=== PATIENT | female | born 1975 | race Caucasian/White ===

== ENCOUNTER 2021-11-13 13:28 | Outpatient (CLI) | payer OTHER, SELFPAY ==
--- NOTE | 2021-11-13 13:37 | MM_ITS ---
WS: [id number] Exam: [place] [id number] Date/Time of Exam: 11/13/2021 1:40 PM Reason For Exam: SCREENING VIEWS: MLO and CC views both breasts. Comparison made with prior exam of 05/10/2019. Findings: There was no sign of mass, architectural distortion or suspicious calcification in either breast. Sev eral small benign-appearing nodules in both breasts which are stable.Scattered fibroglandular densit ies MM/[place] [id number] Impression: BI-RADS: 2-Benign FOLLOW-UP: 1 Year Follow-up This mammogram was also analyzed by the Computer Aided Detection System R2 Imag e Product Tester [employer].
== END 2021-11-13 13:29 | disposition home or self-care (01) ==
LOC: RADSHAW 13:35
PROVIDERS: PCP Nurse Practitioner Family; Visit Provider Nurse Practitioner Family
DX: Z12.31 Encounter for screening mammogram for malignant neoplasm of breast (principal)
CPT/HCPCS: 77067

== ENCOUNTER 2022-11-02 16:20 | Outpatient (CLI) | payer OTHER, SELFPAY ==
--- NOTE | 2022-11-02 16:40 | XR_ITS ---
WS: [id number] XR elbow RT 2V [id number] REASON FOR EXAM: ELBOW JT PAIN, RIGHT FINDINGS: Joint spaces of the right elbow are intact and well preserved. No fracture or focal bone lesion. No periosteal reaction. No soft tissue abnormality. XR/XR elbow RT 2V [id number] IMPRESSION: No significant abnormality.
== END 2022-11-02 16:21 | disposition home or self-care (01) ==
PROVIDERS: PCP Nurse Practitioner Family; Visit Provider Family Medicine
DX: M25.521 Pain in right elbow (principal)
CPT/HCPCS: 73070

== ENCOUNTER 2024-05-16 13:12 | Outpatient (CLI) | payer OTHER, SELFPAY ==
--- NOTE | 2024-05-16 13:21 | USCV_ITS ---
Claudia Allen Age: 49 Gender: F : 1975 Exam Date: 05/16/2024 13:29 Ordering Phys: Alisha العراقي DO Technologist: CT Exam Location: [facility] [place]_ Indication: murmur BP: 152 / 84 HR: 99 Rhythm: Sinus Technical Quality: Technically difficult study MEASUREMENTS (Male / Female) Normal Values 2D ECHO LVOT Diameter 2.0 cm LV Ejection Fraction MOD 4C 56.2 % LV Ejection Fraction MOD 2C 58.5 % LV Ejection Fraction 2C AL 57.4 % LA Diameter 4.0 cm RA Systolic Volume 4C AL 35.2 ml RA Systolic Volume 4C MOD 32.4 ml LA Sys Volume AL 56.8 cm cubed LA Sys Volume Index AL 23.2 cm cubed/m squared Aorta at Sinotubular Diameter 1.7 cm M-MODE LA Ao Ratio MM 1.9 AV Cusp Separation MM 1.4 cm DOPPLER AV Peak Velocity 164.0 cm/s LVOT Peak Velocity 150.0 cm/s AV Area Cont Eq vti 2.2 cm squared AV Area Cont Eq pk 2.9 cm squared MV Peak Velocity 148.0 cm/s MV Area PHT 4.2 cm squared Mitral E to A Ratio 0.8 TR Peak Velocity 111.0 cm/s TR Peak Gradient 4.9 mmHg TV Peak E Velocity 72.0 cm/s Right Atrial Pressure 3.0 mmHg Pulmonary Artery Systolic Pressu 7.9 mmHg PV Peak Velocity 143.0 cm/s FINDINGS Left Ventricle Normal left ventricular size and systolic function, EF 58%. No gross wall motion abnormalities.Grade I/IV diastolic dysfunction (abnormal relaxation filling pattern), normal to mildly elevated filling pressures. Right Ventricle The right ventricle is normal in size and function. Right Atrium The right atrium is normal in size. Left Atrium The left atrium is normal in size. Mitral Valve Moderate mitral annular calcification. Aortic Valve Thickened aortic valve. Tricuspid Valve No gross abnormalities noted Pulmonic Valve No gross abnormalities noted Pericardium Normal pericardium without effusion. Aorta Normal ascending aorta dimension. IVC The inferior vena cava appears normal. CONCLUSIONS Normal left ventricular size and systolic function, EF 58%. No gross wall motion abnormalities. Some features of grade I/IV diastolic dysfunction (abnormal relaxation filling pattern), normal to mildly elevated filling pressures. Thickened aortic valve with elevated velocities suggesting aortic valve sclerosis. Moderate mitral annular calcification. There is no pericardial effusion. There are no intracardiac masses. No similar previous studies are available for comparison Dr Emely Esteves MD [facility] (Electronically Signed) Final Date: 16 May 2024 18:22 S
== END 2024-05-16 13:13 | disposition home or self-care (01) ==
LOC: RAD 13:16
PROVIDERS: PCP Nurse Practitioner Family; Visit Provider Family Medicine
DX: R01.1 Cardiac murmur, unspecified (principal); I34.81 Nonrheumatic mitral (valve) annulus calcification; I35.8 Other nonrheumatic aortic valve disorders
CPT/HCPCS: 93306

== ENCOUNTER 2024-08-15 09:59 | Outpatient (CLI) | payer OTHER, SELFPAY ==
--- NOTE | 2024-08-15 10:00 | MM_ITS ---
WS: [id number] VIEWS: MLO and CC views both breasts. 3D digital tomosynthesis is also included in this exam. Comparison made with prior exam of 05/10/2019, 11/13/2021.. Findings: There are scattered areas of fibroglandular density. FINDINGS no sign of suspicious mass, tumor calcification or architectural distortion. Stable appearin g nodules in both breasts. MM/MM scr BI tomosynthesis [id number] Impression: BI-RADS: 2 - Benign. FOLLOW-UP: 1 Year Follow-up This mammogram was also analyzed by the Computer Aided Detection System R2 Imag e Java J2Ee Application Developer.
== END 2024-08-15 10:00 | disposition home or self-care (01) ==
LOC: MOBLMAM 10:00
PROVIDERS: PCP Nurse Practitioner Family; Visit Provider Family Medicine
DX: Z12.31 Encounter for screening mammogram for malignant neoplasm of breast (principal); R92.323 Mammographic fibroglandular density, bilateral breasts
CPT/HCPCS: 77063; 77067

== ENCOUNTER 2024-11-30 18:36 | Emergency (ER) | payer OTHER, SELFPAY ==
--- NOTE | 2024-11-30 18:40 | XRR_ITS ---
PROCEDURE INFORMATION: Exam: XR Chest Exam date and time: 11/30/2024 8:24 PM Age: 49 years old Clinical indication: Chest pressure; Chest pain TECHNIQUE: Imaging protocol: Radiologic exam of the chest. Views: 1 view. COMPARISON: No relevant prior studies available. FINDINGS: Lungs: Unremarkable. No consolidation. Pleural spaces: Unremarkable. No pleural effusion. No pneumothorax. Heart/Mediastinum: Unremarkable. No cardiomegaly. Bones/joints: Unremarkable. XR/XR chest 1V portable [id number] IMPRESSION: No acute findings.
[2024-11-30 18:43] VITALS: BP 145/89; PULSE 112; RESP 18; TEMP 36.7; O2SAT 99; BMI 44.9
--- NOTE | 2024-11-30 18:45 | ECG_ITS ---
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
[2024-11-30 20:41] LABS: Basophils # 0.1 10^3/uL (0.0-0.1); Basophils % 0.9 %; Eosinophils # 0.1 10^3/uL (0.0-0.8); Hematocrit 46.1 % (36-47); Lymphocytes # 2.2 10^3/uL (0.8-4.8); Lymphocytes % 22.5 %; Mean Corpuscular HGB Conc 31.9 g/dL (30-55); Mean Corpuscular Hemoglobin 29.2 pg (27-33); Mean Corpuscular Volume 91.5 fl (85-98); Mean Platelet Volume 10.3 fL (7.4-10.4); Monocytes # 0.7 10^3/uL (0.2-0.9); Monocytes % 7.6 %; Neutrophils # 6.47 10^3/uL (1.8-7.7); Neutrophils % 67.8 %; Nucleated Red Blood Cells % 0 %; Platelet Count 271 10^3/cmm (157-399); Red Blood Count 5.04 10^6/uL (3.85-5.65); White Blood Count 9.56 10^3/uL (3.29-11.43)
[2024-11-30 20:55] LABS: Anion Gap 19.1 (5-19); Blood Urea Nitrogen 18 mg/dL (6-20); Calcium 10.3 mg/dL (8.5-10.5); Carbon Dioxide 25 mmol/L (22-29); Chloride 99 mmol/L (98-107); Creatinine Clr Calc Pharmacy 100.3905; Glomerular Filtration Rate 66.8 mL/min (90-130); Glucose 131 mg/dL (65-115); Osmolality Calculated 292 mOsm/kg (285-295); Potassium 4.1 mmol/L (3.5-5.1); Sodium 139 mmol/L (136-145)
[2024-11-30 21:00] LABS: Troponin(5th) Baseline 7 ng/L (0-10)
[2024-11-30 21:36] VITALS: BP 161/69; PULSE 102; RESP 16; O2SAT 95
--- NOTE | 2024-11-30 21:37 | ED_ITS ---
HPI - Arrhythmia/Palpitations 2 General: Chief Complaint: Arrhythmia/Palpitations Stated Complaint: Dizzy,heart beat faster Time Seen by Provider: 11/30/24 21:15 History of Present Illness: Patient presents to the ER with complaints of intermittent palpitations, tachycardia with dizziness for the past few days. She says it will get better and go away if she lies down and when she stands up or moves and gets worse. Patient denies any chest pain nausea vomiting diarrhea cough congestion fever shortness of breath heart issues. Patient does have high blood pressure and diabetes. Review of her chart shows she had an echo back on 05/16/2024 which was essentially benign with a EF of 58% Related Data Allergies Allergy/AdvReac Type Severity Reaction Status Date / Time No Known Allergies Allergy Verified 11/30/24 18:49 Review of Systems 2 General: Reports: 10 or more systems reviewed and unremarkable except in HPI and below Physical Exam 2 Const: COMMON NORMALS: no acute distress, average body habitus, patient oriented x3, no limitations, healthy appearing, alert and well nourished HENMT: COMMON NORMALS: normocephalic, atraumatic, hearing grossly normal bilaterally, external ears normal, Normal external nose present, Normal nasal mucous membranes and turbinates present, moist oral mucous membranes and oropharynx normal HEAD & SCALP: normocephalic and atraumatic NOSE: Normal external nose present and Normal nasal mucous membranes and turbinates present EXTERNAL EAR: Yes external ears normal Eye: COMMON NORMALS: Equal, round and reactive pupils present, EOMs intact bilaterally, conjunctivae normal and no scleral icterus CONJUNCTIVA: Yes conjunctivae normal PUPIL: Yes Equal, round and reactive pupils present Neck/C-Spine: COMMON NORMALS: full ROM, no lymphadenopathy, supple, no meningeal signs, no JVD and Thyroid normal THYROID: Thyroid normal Chest: COMMONS NORMALS: normal inspection of the chest and normal palpation of entire chest wall Resp: COMMON NORMALS: normal respiratory effort, No retractions, No use of accessory muscles and clear to auscultation bilaterally AUSCULTATION: clear to auscultation bilaterally Cardio: COMMON NORMALS: no JVD, regular rate, regular rhythm, S1 normal heart sound present, S2 normal heart sound present, No gallops present (Cardio), No clicks present (Cardio), No murmurs present (Cardio) and No rub (Cardio) R ATE: regular rate RHYTHM: regular rhythm HEART SOUNDS: S1 normal heart sound present and S2 normal heart sound present Neuro: COMMON NORMALS: patient oriented x3 SENSORIUM/ORIENTATION: Yes alert MENINGEAL SIGNS: Yes no meningeal signs Course 2 Vital Signs: Vital signs: Vital Signs Temperature 98.0 F 11/30/24 18:43 Pulse Rate 95 11/30/24 22:00 Respiratory Rate 16 11/30/24 22:00 Blood Pressure 161/69 11/30/24 21:36 Pulse Oximetry 92 11/30/24 22:00 Oxygen Delivery Me thod Room Air 11/30/24 22:00 MDM - Arrhythmia/Palpitations Medical Decision Making Chest x-ray showed no acute finding, EKG showed sinus tachycardia, lab work was unremarkable. Initial troponin was 7 and 2-hour troponin was 8.1, patient was symptom-free during her stay here. These results was discussed with her as well as a Holter monitor. Patient be discharged home to follow-up with her PCP. Medical Records I reviewed the patient's medical records. Lab Data I reviewed the patient's lab results. 11/30/24 20:03 11/30/24 20:03 Radiology Impressions Chest X-Ray 11/30/24 18:40 IMPRESSION: No acute findings. Laboratory Results WBC 9.56 10^3/uL (3.29-11.43) 11/30/24 20:03 RBC 5.04 10^6/uL (3.85-5.65) 11/30/24 20:03 Hgb 14.70 g/dL (11.27-16.99) 11/30/24 20:03 Hct 46.1 % (36-47) 11/30/24 20:03 MCV 91.5 fl (85-98) 11/30/24 20:03 MCH 29.2 pg (27-33) 11/30/24 20:03 MCHC 31.9 g/dL (30-55) 11/30/24 20:03 RDW 13.0 % (12.1-15.1) 11/30/24 20:03 Plt Count 271 10^3/cmm (157-399) 11/30/24 20:03 MPV 10.3 fL (7.4-10.4) 11/30/24 20:03 Neut % (Auto) 67.8 % 11/30/24 20:03 Lymph % (Auto) 22.5 % 11/30/24 20:03 [place] % (Auto) 7.6 % 11/30/24 20:03 Eos % (Auto) 1.0 % 11/30/24 20:03 Baso % (Auto) 0.9 % 11/30/24 20:03 Neut # (Auto) 6.47 10^3/uL (1.8-7.7) 11/30/24 20:03 Lymph # (Auto) 2.2 10^3/uL (0.8-4.8) 11/30/24 20:03 [place] # (Auto) 0.7 10^3/uL (0.2-0.9) 11/30/24 20:03 Eos # (Auto) 0.1 10^3/uL (0.0-0.8) 11/30/24 20:03 Baso # (Auto) 0.1 10^3/uL (0.0-0.1) 11/30/24 20:03 Nucleated RBC % (auto) 0 % 11/30/24 20:03 Nucleated RBCs # 0.0 /100WBC 11/30/24 20:03 Sodium 139 mmol/L (136-145) 11/30/24 20:03 Potassium 4.1 mmol/L (3.5-5.1) 11/30/24 20:03 Chloride 99 mmol/L (98-107) 11/30/24 20:03 Carbon Dioxide 25 mmol/L (22-29) 11/30/24 20:03 Anion Gap 19.1 (5-19) H 11/30/24 20:03 BUN 18 mg/dL (6-20) 11/30/24 20:03 Creatinine 0.9 mg/dL (0.5-0.9) 11/30/24 20:03 GFR Calculation 66.8 mL/min (90-130) L 11/30/24 20:03 Glucose 131 mg/dL (65-115) H 11/30/24 20:03 Calculated Osmolality 292 mOsm/kg (285-295) 11/30/24 20:03 Calcium 10.3 mg/dL (8.5-10.5) 11/30/24 20:03 Magnesium 2.0 mg/dL (1.7-2.3) 11/30/24 20:03 Troponin T Baseline 7 ng/L (0-10) 11/30/24 20:03 Troponin T 120 Minute 8.19 ng/L (0-10) 11/30/24 21:52 Delta Troponin T 1.19 ABS# (0-10) 11/30/24 21:52 TSH 2.23 uIU/mL (0.27-4.20) 11/30/24 20:03 All radiology interpretation(s) finalized by discharge Discharge Plan Discharge Patient Disposition: Home Clinical Impression: Palpitations Condition: Stable Discharge Orders: Discharge ED (Routine); Ordered 11/30/24 Ordered By: Mal Lay Referrals: Leonela Beth FNP [Primary Care Provider] - 1 week Patient Instructions: Heart Palpitations Activity Restrictions/Additional Instructions: Your evaluation ER did not show any acute cause of your symptomatology. Your EKG just showed sinus tachycardia which is a fast heart rate. Your lab work was unremarkable. You have been referred to case management for Holter monitor. This is a like an EKG where home and a records your heart all the time. This will help us determine if you are going in and out of rhythm of your heart. Please follow-up with your family practice physician in the next 7 to 10 days for further evaluation and treatment. Print Language: Croatian Coding Level of Care Code ED Smoking Pipe Maker for Bianka Zimmerman
[2024-11-30 21:48] LABS: Thyroid Stimulating Hormone 2.23 uIU/mL (0.27-4.20)
[2024-11-30 22:00] VITALS: PULSE 95; RESP 16; O2SAT 92
[2024-11-30 22:20] LABS: Troponin 5 2HR 8.19 ng/L (0-10); Troponin 5 2HR Delta 1.19 ABS# (0-10)
[2024-11-30 22:51] VITALS: BP 118/75; PULSE 101; RESP 16; O2SAT 91
--- NOTE | 2024-12-06 07:10 | DCPLANNER ---
messaged heart care for er f/u
== END 2024-11-30 22:49 | disposition home or self-care (01) ==
PROVIDERS: Emergency Provider Emergency Medicine; PCP Nurse Practitioner Family
DX: R00.2 Palpitations (principal)
CPT/HCPCS: 36415; 71045; 80048; 83735; 84443; 84484; 85025; 93005; 99285

== ENCOUNTER 2025-10-14 08:48 | Outpatient (CLI) | payer OTHER, SELFPAY ==
--- NOTE | 2025-10-14 08:55 | MM_ITS ---
WS: [id number] BILATERAL SCREENING DIGITAL TOMOSYNTHESIS MAMMOGRAM WITH CAD HISTORY: SCREENING COMPARISON: 08/15/2024, 11/13/2021, 05/10/2019 Bilateral CC and MLO views with tomosynthesis and synthetic mammography submitted. Computer aided detection analyzed. Breast composition: There are scattered areas of fibroglandular density. No suspicious masses, microcalcifications or architectural distortion. Long-term stability well-circumscribed masses in each breast. Benign scattered calcifications. MM/MM scr tomosynthesis [id number] IMPRESSION: BI-RADS: 2 - Benign. FOLLOW UP: 1 Year Follow-up
== END 2025-10-14 08:49 | disposition home or self-care (01) ==
LOC: RAD 08:49
PROVIDERS: PCP Family Medicine; Visit Provider Family Medicine
DX: Z12.31 Encounter for screening mammogram for malignant neoplasm of breast (principal); R92.323 Mammographic fibroglandular density, bilateral breasts; R92.1 Mammographic calcification found on diagnostic imaging of breast; N63.10 Unspecified lump in the right breast, unspecified quadrant; N63.20 Unspecified lump in the left breast, unspecified quadrant
CPT/HCPCS: 77063; 77067